=== PATIENT | male | born 1955 | race Caucasian/White ===

== ENCOUNTER → 2016-10-04 | Day surgery (SDC) | payer MEDICARE ==
[~2016-10-04] MED LIST: AMLO5 PO; BELLADONNA ALKALOIDS/OPIUM 60 MG SUPP RECTAL ONE; BUSP5TAB3 PO; CLON1 PO; GENTAMICIN SULFATE 80 MG/2 ML VIAL ONE; LACTATED RINGER'S 1000 ML INJ 1,000 ML ONE; LEVA250T14 PO; MEPERIDINE HCL 25 MG/ML VIAL ONE; MIDAZOLAM HCL 2 MG/2 ML VIAL ONE; MORPHINE SULFATE 4 MG/ML INJ ONE; ONDANSETRON HCL 4 MG/2 ML VIAL IV PUSH ONE; PRED1TAB PO; PRED20 PO; PRIN5TAB PO; PROPOFOL 200 MG/20 ML AMP IV ONE; SODIUM CHLORIDE 0.9% SOLN 100 ML (PAB) BAG IV ONE; ZOVI800T13 PO; [UNRECOGNIZED DRUG - REMARK]; ceFAZolin INJ 1,000 MG VIAL ONE
--- NOTE | 2016-10-04 11:10 | TN ---
cc: ZACKERY BURNETT M.D. DATE OF SURGERY 10/04/2016 PREOPERATIVE DIAGNOSIS 1. Benign prostatic hyperplasia (ICD-10 code N40.1). 2. Lower urinary tract symptoms PROCEDURE Transurethral resection of prostate (TURP) (CPT code 49302) INDICATIONS Mr. Elliott is a 61-year-old gentleman who has failed maximum pharmacologic intervention for his BPH and lower urinary tract symptoms who presents now for transurethral resection of the prostate. FINDINGS Normal anterior urethra with a moderate bulbar membranous urethral stricture. The prostatic urethra shows bilobular hyperplasia with severe obstruction from coapting lateral lobes. The bladder itself shows the ureteral orifice normal size, shape and position effluxing clear urine. There is some mild trabeculation. No diverticula, cellules or stones identified. No tumors or abnormal mucosa. PROCEDURE The procedure, as well as, the risks and benefits were explained to the patient. Informed consent was obtained. The patient was taken to the major operative theater where he was placed in the supine position. The patient was identified, as well as the operative site. A universal time-out was performed in the standard fashion. At this time general anesthetic and prophylactic intravenous antibiotics consisting of gentamicin 80 mg and Ancef one gram were administered. After adequate anesthetic, he was placed in the low dorsal lithotomy position, some mild Trendelenburg and prepped and draped usual sterile fashion. At this time, a 22.5 Irish cystoscope was placed under direct vision with a 30 degree lens and the entire bladder and prostatic urethra was systematically surveyed. At this time, decision was made to perform transurethral resection of the prostate using bipolar energy with the Avangate BV system and a right-angle bladder loop so the cystoscope was removed and a 27 Irish Carvalho resectoscope was placed under direct vision into the bladder. At this time, transurethral resection of the prostate was performed in standard fashion first at the bladder neck and then more distally to the level of the verumontanum. Care was taken not to resect distal to the proximal verumontanum which was kept in view during the case. After adequate resection and a large channel was opened, the prostate chips were evacuated using an [employer] evacuator and sent for pathological evaluation. Care was taken to examine the bladder, as well as the sphincter and there was no evidence of incidental damage. Care was also taken to confirm hemostasis using coagulation mode of electrocautery. At this time after confirming all of these, the bladder was filled and the resectoscope removed, pressures was placed on the dome of the bladder. The patient had an excellent stream. A 24-Irish three-way hematuria catheter was placed into the bladder and placed to straight drain. The irrigation port was capped and the balloon was insufflated with 30 cc of sterile water with clear urine effluxing. The patient tolerated procedure well, emerged from anesthetic without difficulty and transferred to the recovery room in stable condition to be discharged home when criteria is met. There are no obvious complications. The case was longer then typical due to the patient's size of his gland and vascularity. MD DAMON Silva/JESUS /10:52 AM /11:01 AM
== END | disposition home or self-care (01) ==
LOC: ESDC 06:16
PROVIDERS: ATTEND Urology
DX: N40.1 Benign prostatic hyperplasia with lower urinary tract symptoms (principal)
CPT/HCPCS: 00914; 52601; 88305; J0690; J1580; J2175; J2250; J2270; J2405; J3010; J7120

== ENCOUNTER 2017-03-12 09:03 | Emergency (ER) | payer MEDICARE ==
[~2017-03-12] VITALS: Ht 188 cm; Wt 121.0 kg
[~2017-03-12 09:03] MED LIST changes: -BELLADONNA ALKALOIDS/OPIUM 60 MG SUPP RECTAL ONE; -GENTAMICIN SULFATE 80 MG/2 ML VIAL ONE; -LACTATED RINGER'S 1000 ML INJ 1,000 ML ONE; -MEPERIDINE HCL 25 MG/ML VIAL ONE; -MIDAZOLAM HCL 2 MG/2 ML VIAL ONE; -MORPHINE SULFATE 4 MG/ML INJ ONE; -ONDANSETRON HCL 4 MG/2 ML VIAL IV PUSH ONE; -PROPOFOL 200 MG/20 ML AMP IV ONE; -SODIUM CHLORIDE 0.9% SOLN 100 ML (PAB) BAG IV ONE; -ceFAZolin INJ 1,000 MG VIAL ONE
[2017-03-12 09:08] VITALS: BP 122/65; PULSE 116; RESP 18; TEMP 98.8; O2SAT 90
--- NOTE | 2017-03-12 09:21 | PD ---
HPI Chief Complaint: Complaint Time Seen by Provider: 09:17 Travel History International Travel<30 days: No Contact w/Intl Traveler<30days: No Traveled to known affect area: No History of Present Illness HPI Patient presents with complaints of urinary retention. Reports a TURP by Dr. Gaviria on . Reports retention of urine on Monday night. Evaluated at [facility]. States he was given in specified muscle relaxer. Home health visited him yesterday and changed his catheter. Awoke this morning with blood around the catheter and no urinary output. Denies any nausea vomiting diarrhea or fever. Denies any hypertension. Unable to recall medications. Denies any blood thinners. PFSH Past Medical History Hx Anticoagulant Therapy: No Autoimmune Disease: Yes (RA) Anxiety: Yes (Panic attacks) Cancer: Yes (Skin- no chemo/rad) Cardiovascular Problems: Yes (HTN) Chemotherapy: No Diabetes: No Hypertension: Yes Respiratory: Yes (Currently being tx for PNA 05/30/15) Past Surgical History Abdominal Surgery: Yes (Hernia X's 5) Tonsillectomy: Yes Other Surgery: Yes (Skin CA X's 2) Social History Alcohol Use: No Tobacco Use: No Substance Use: No Allergies-Medications (Allergen,Severity, Reaction): Coded Allergies: bee venom protein (honey bee) (Unverified Allergy, Severe, Anaphylaxis, ) clarithromycin (Unverified Adverse Reaction, Severe, Vomitting, diarrhea, 03/12/17) Reported Meds & Prescriptions Reported Meds & Active Scripts Active Reported Colace (Docusate Sodium) 100 Mg Capsule 1 Tab PO BID Cephalexin 500 Mg Tab 500 Mg PO Q8H Ditropan (Oxybutynin Chloride) 5 Mg Tab 5 Mg PO Q8HR Cymbalta DR (Duloxetine HCl) 60 Mg Capdr 120 Mg PO DAILY Fromberg (Hydrocodone-Acetaminophen) 5-325 mg Tab 1 Tab PO Q6H PRN Lisinopril 5 Mg Tab 5 Mg PO DAILY Norvasc (Amlodipine Besylate) 5 Mg Tab 5 Mg PO DAILY Review of Systems General / Constitutional: No: Fever Eyes: No: Visual changes HENT: No: Headaches Cardiovascular: No: Chest Pain or Discomfort Respiratory: No: Shortness of Breath Gastrointestinal: No: Abdominal Pain Genitourinary: Positive: Hematuria, Decreased Urinary Output, No: Dysuria Musculoskeletal: No: Pain Skin: No Rash Neurologic: No: Weakness Psychiatric: No: Depression Endocrine: No: Polydipsia Hematologic/Lymphatic: No: Easy Bruising Physical Exam Narrative GENERAL: Well-nourished, well-developed patient. SKIN: Focused skin assessment warm/dry. HEAD: Normocephalic. EYES: No scleral icterus. No injection or drainage. NECK: Supple, trachea midline. No JVD or lymphadenopathy. CARDIOVASCULAR: Regular rate and rhythm without murmurs, gallops, or rubs. RESPIRATORY: Poor breath sounds use. GASTROINTESTINAL: Abdomen soft, non-tender, nondistended. MUSCULOSKELETAL: No cyanosis, or edema. BACK: Nontender without obvious deformity. No CVA tenderness. Catheter in place no urinary output bleeding around the catheter. Data Data Last Documented VS Vital Signs Date Time Temp Pulse Resp B/P (MAP) Pulse Ox O2 Delivery O2 Flow Rate FiO2 03/12/17 11:10 102 16 126/70 (88) 93 Room Air 03/12/17 09:08 98.8 Orders Orders Bladder/Catheter Irrigation (03/12/17 09:33) Hydromorphone Pf Inj (Dilaudid Pf Inj) (03/12/17 10:15) Ondansetron Inj (Zofran Inj) (03/12/17 10:15) Bladder Scan PRN (03/12/17 10:15) Hydromorphone Pf Inj (Dilaudid Pf Inj) (03/12/17 10:45) MDM Medical Decision Making Medical Screen Exam Complete: Yes Emergency Medical Condition: Yes Differential Diagnosis Malfunctioning catheter, urinary retention, UTI Narrative Course Assessment and plan discussed with patient and at bedside. Irrigation with 300 cc saline attempted without return. Bladder scan showed 1 L of fluid. Urinary catheter removed and replaced with a 20-gauge Lee. Good urinary return of over 1 L bloody urine. Physician Communication Physician Communication Spoke with Dr. Fraser who is aware Diagnosis Primary Impression: Postoperative urinary retention Patient Instructions: General Instructions, Narcotic given in the ED Additional Instructions: Encourage good fluid intake, encouraged to follow-up with Dr. Fraser in the morning. Return to emergency room with any onset of new symptoms. Patient has pain medication at home Med/Other Pt SpecificInfo: No Meds Exist/No RX given Disposition: 01 DISCHARGE HOME Condition: Good Mj Ledezma MD Mar 12, 2017 09:21
[2017-03-12] MEDS ORDERED: LISI-519 PO (10:03)
[2017-03-12] MEDS ORDERED: CYMB60CA PO (10:03)
[2017-03-12] MEDS ORDERED: OXYB5TAB10 PO (10:03)
[2017-03-12] MEDS ORDERED: AMLO5 PO (10:03)
[2017-03-12] MEDS ORDERED: CEPH500T PO (10:03)
[2017-03-12] MEDS ORDERED: COLA100C PO (10:03)
[2017-03-12] MEDS ORDERED: NORC5TAB PO (10:03)
[2017-03-12] MEDS ORDERED: HYDROmorphone HCL PF 1 MG/ML VIAL IV PUSH ONE ×2 (10:15→10:45)
[2017-03-12] MEDS ORDERED: ONDANSETRON HCL 4 MG/2 ML VIAL IV PUSH ONE (10:15)
[2017-03-12 10:30] VITALS: BP 155/88; PULSE 105; RESP 18; O2SAT 93
[2017-03-12 11:10] VITALS: BP 126/70; PULSE 102; RESP 16; O2SAT 93
[2017-03-12 11:20] VITALS: RESP 17
== END 2017-03-12 11:48 | disposition home or self-care (01) ==
LOC: PHED 09:03
DX: N99.89 Other postprocedural complications and disorders of genitourinary system (principal); R33.8 Other retention of urine; Y84.6 Urinary catheterization as the cause of abnormal reaction of the patient, or of later complication, without mention of misadventure at the time of the procedure
CPT/HCPCS: 51700; 51798; 96374; 96375; 99284; J1170; J2405